=== PATIENT | female | born 1990 | race Hispanic/Latino ===

== ENCOUNTER 2023-11-09 17:55 | Emergency (ER) | payer MEDICAID ==
[~2023-11-09] VITALS: Ht 149.9 cm; Wt 83.0 kg
[~2023-11-09 17:55] MED LIST: AMPICILLIN500 MG PO; ANUSOL HC25 MG RE; AVIDOXY100 MG PO; COLACE100 MG PO; DEPO-PROVER150 MG/ML IM; FLAGYL500 MG PO; INTEGRA F PO; PRENATAL1 TAB PO; PRILOSEC20 MG/CAP PO; [UNRECOGNIZED DRUG - OTHER] PO
[2023-11-09 18:42] LABS: BASO% 0.2 % (0-3); EOS% 2.7 % (0-8); IMMATURE GRANULOCYTES 1.5 % (0.0-5.0); LYMPH% 13.6 % (15-41); MEAN CORPUSCULAR HGB 25.7 pG CALC (26.0-32.0); MEAN CORPUSCULAR HGB CONC 30.4 g/dL CAL (32.0-36.0); MONO% 5.6 % (2-13); NEUT# 6.19 thou/uL (2.00-7.15); NEUT% 76.4 % (42-76); RED BLOOD COUNT 3.39 mill/uL (4.20-5.60); RED CELL DISTRI WIDTH 16.9 % (11.5-15.5)
[2023-11-09 18:44] LABS: HEMATOCRIT 28.6 % (37.0-47.0); HEMOGLOBIN 8.7 g/dl (12.0-16.0); MEAN CELL VOLUME 84.4 fL CALC (80.0-100.0)
[2023-11-09 19:00] LABS: ALBUMIN 3.6 g/dL (3.2-5.0); ALKALINE PHOSPHATASE 166 u/l (38-126); BILIRUBIN, TOTAL 0.4 mg/dL (0.02-1.3); BUN 12 mg/dL (7-17); BUN/CREATININE RATIO 22 (12-20 (CALC)); CARBON DIOXIDE 24 mmol/l (22-30); CHLORIDE 109 mmol/l (95-108); CREATININE 0.6 mg/dL (0.5-1.0); GFR FOR AFR.AMER. > 60 ML/MIN (>=60 (CALC)); GFR OTHER RACES > 60 ML/MIN (>=60 (CALC)); SGOT/AST 37 u/l (14-36); TOTAL PROTEIN 6.9 g/dL (6.3-8.2)
[2023-11-09 19:02] LABS: ANION GAP 14 (6-22 (CALC)); SODIUM 143 mmol/l (137-146)
[2023-11-09 20:27] LABS: URINE BILIRUBIN - DIPSTICK Negative (NEGATIVE); URINE BLOOD DIPSTICK Large (NEGATIVE); URINE GLUCOSE - DIPSTICK Negative (NEGATIVE); URINE KETONE Negative (NEGATIVE); URINE NITRITE - DIPSTICK Negative (Negative); URINE PH 7.5 (4.5-8.0); URINE PROTEIN - DIPSTICK 30 mg/dL (NEG-TRACE); URINE UROBILINOGEN - DIPSTICK 0.2 E.U./dL (0.2)
[2023-11-09 20:28] LABS: URINE COLOR Yellow; URINE LEUK ESTERASE Small (NEGATIVE)
[2023-11-09 20:41] LABS: URINE RBC 25-50 RBC/hpf (0-5); URINE SQUAMOUS EPITHELIAL CELL FEW EPI/hpf (0-FEW)
[2023-11-09] MEDS ORDERED: MAXZIDE-25MG1 COMBO PO (21:48)
[2023-11-09 21:58] VITALS: BP 136/77
== END 2023-11-09 22:08 | disposition home or self-care (01) ==
LOC: ED 17:55
PROVIDERS: Nurse Practitioner
DX: O99.893 Other specified diseases and conditions complicating puerperium (principal); R06.00 Dyspnea, unspecified; R60.0 Localized edema; Z20.822 Contact with and (suspected) exposure to COVID-19
CPT/HCPCS: Q9967